=== PATIENT | male | born 1975 | race Hispanic/Latino ===

== ENCOUNTER 2017-01-29 20:55 | Emergency (ER) | payer SELFPAY ==
[2017-01-29 20:58] VITALS: BP 118/80; PULSE 88; RESP 16; TEMP 99.6; O2SAT 98
[2017-01-29 22:24] LABS: BASO # 0.1 K/uL (0.0-0.2); BASO % 0.7 % (0.0-2.0); EOS # 0.1 K/uL (0.0-0.7); EOS % 0.6 % (0.0-4.0); HEMATOCRIT 44.6 % (35.0-51.0); LYMPH # 2.3 K/uL (1.0-4.3); LYMPH % 21.2 % (20.0-40.0); MEAN CELL VOLUME 88.8 fl (80.0-94.0); MEAN CORPUSCULAR HEMOGLOBIN 29.6 pg (27.0-31.0); MEAN CORPUSCULAR HGB CONC 33.3 g/dL (33.0-37.0); MEAN PLATELET VOLUME 8.9 fl (7.2-11.7); MONO # 1.4 K/uL (0.0-0.8); MONO % 12.9 % (0.0-10.0); NEUT # 6.9 K/uL (1.8-7.0); NEUT % 64.6 % (50.0-75.0); NRBC % 0.1 % (0.0-0.0); RED CELL DISTRIBUTION WIDTH 15.4 % (11.5-14.5); WHITE BLOOD COUNT 10.7 K/uL (4.8-10.8)
[2017-01-29 22:35] LABS: ALB/GLOB RATIO 1.3 (1.0-2.1); ALCOHOL SERUM < 10 mg/dl (0-10); ALKALINE PHOSPHATASE 79 U/L (38-126); ALT/SGPT 23 U/L (21-72); AST/SGOT 23 U/L (17-59); BILIRUBIN,TOTAL 0.7 mg/dl (0.2-1.3); BLOOD UREA NITROGEN 14 mg/dl (9-20); CALCIUM 9.7 mg/dL (8.4-10.2); CARBON DIOXIDE 23 mmol/L (22-30); CHLORIDE 106 mmol/L (98-107); GFR AFRICAN-AMERICAN > 60; GLUCOSE,RANDOM 93 mg/dL (75-110); POTASSIUM 4.3 MMOL/L (3.6-5.0); SODIUM 139 mmol/l (132-148); TOTAL PROTEIN 9.1 G/DL (6.3-8.2)
--- NOTE | 2017-01-29 22:50 | ED PDOC ---
HPI: General Adult Time Seen by Provider: 01/29/17 21:00 Chief Complaint (Nursing): Upper Extremity Problem/Injury Chief Complaint (Provider): Shoulder and arm pain History Per: Patient History/Exam Limitations: no limitations Onset/Duration Of Symptoms: Hrs (6x hours prior to arrival) Current Symptoms Are (Timing): Still Present Severity: Moderate Additional Complaint(s): 41 year old male with no pertinent medical history presents to the ED with complaints head pressure that radiates to his left shoulder that started 6x hours prior to arrival while he was at work. He reports having chest tightness when taking deep breaths. He denies having any falls, injuries or trauma to his left shoulder. . He denies having a history of migraines or headaches. PMD: patient does not have a PMD. Past Medical History Reviewed: Historical Data, Nursing Documentation, Vital Signs Vital Signs: Last Vital Signs Temp 99.6 F 01/29/17 20:56 Pulse 88 01/29/17 20:56 Resp 16 01/29/17 20:56 BP 118/80 01/29/17 20:56 Pulse Ox 98 01/29/17 23:20 - Medical History PMH: Atrial Fibrillation, Kidney Stones Other PMH: Zen Parkinson White Syndrome - Surgical History Surgical History: Appendectomy Other surgeries: 2 bowel resections. knee surgery. spleenectomy. kidney stone removal surgery - Family History Family History: States: Unknown Family Hx - Social History Current smoker - smoking cessation education provided: No Alcohol: Social Drugs: Denies - Allergies Allergies/Adverse Reactions: Allergies Allergy/AdvReac Type Severity Reaction Status Date / Time No Known Allergies Allergy Verified 01/29/17 20:56 Review of Systems ROS Statement: Except As Marked, All Systems Reviewed And Found Negative Constitutional: Negative for: Fever, Chills Cardiovascular: Positive for: Other (chest tightness with deep breathing) Musculoskeletal: Positive for: Neck Pain, Shoulder Pain (left shoulder) Neurological: Positive for: Other (head pressure radiates to neck and shoulder) Physical Exam - Reviewed Nursing Documentation Reviewed: Yes Vital Signs Reviewed: Yes - Physical Exam Appears: Positive for: Non-toxic, In Acute Distress (however pt exhibited drug seeking behavior. competely comfortable until provider walks into the room. pt also cant provide any identification or verification of personal information) Head Exam: Positive for: ATRAUMATIC, NORMOCEPHALIC Skin: Positive for: Normal Color, Warm, Dry Cardiovascular/Chest: Positive for: Regular Rate, Rhythm Respiratory: Positive for: Normal Breath Sounds. Negative for: Respiratory Distress Gastrointestinal/Abdominal: Positive for: Normal Exam Extremity: Positive for: Other (patient has mild tenderness when moving his left side) Neurologic/Psych: Positive for: Alert, Oriented (3x) - Laboratory Results Result Diagrams: 01/29/17 22:22 01/29/17 22:22 - ECG ECG: Positive for: Interpreted By Me, Viewed By Me ECG Rhythm: Positive for: Sinus Rhythm (normal sinus rhythm at 90 beats per minute.), Premature Ventricular Contraction (1 PVC noted) O2 Sat by Pulse Oximetry: 98 (RA) Pulse Ox Interpretation: Normal Medical Decision Making Medical Decision Makin:03 Initial impression: 41 year old male with left sided neck and left shoulder pain. Initial plan: * CT head w/o contrast * alcohol serum * CMP * CBC * reglan 10mg IVP * XRay shoulder left * reevaluation 2300: Patient eloped from the ED at this time. He was told no narcotics would be given and he walked out once he knew that. Scribe Attestation: Documented by Julia Argueta, acting as a scribe for Deejay Evans MD. Provider Scribe Attestation: All medical record entries made by the Scribe were at my direction and personally dictated by me. I have reviewed the chart and agree that the record accurately reflects my personal performance of the history, physical exam, medical decision making, and the department course for this patient. I have also personally directed, reviewed, and agree with the discharge instructions and disposition. Disposition - Clinical Impression Clinical Impression: Headache - Patient ED Disposition Is Patient to be Admitted: No Counseled Patient/Family Regarding: Studies Performed, Diagnosis, Need For Followup - Disposition Disposition: Eloped Disposition Time: 23:00 Condition: FAIR
== END 2017-01-30 06:25 | disposition left against medical advice (07) ==
LOC: H.ER 20:55
DX: R51 Headache (principal); Z87.442 Personal history of urinary calculi; I45.6 Pre-excitation syndrome
CPT/HCPCS: 80053; 85025; 96374; 99282; G0480; J2765

== ENCOUNTER 2017-05-07 17:55 | Emergency (ER) | payer SELFPAY ==
[2017-05-07 18:11] VITALS: BP 131/85; PULSE 89; RESP 16; TEMP 97.7; O2SAT 100
--- NOTE | 2017-05-07 18:19 | ED PDOC ---
HPI: CCC, URI, Sore Throat Time Seen by Provider: 05/07/17 17:56 Chief Complaint (Nursing): ENT Problem Chief Complaint (Provider): Sore throat since last night History Per: Patient History/Exam Limitations: no limitations Have you had recent travel within the past 21 days to any of the following countries: [place], [place], [place] or [place]?: No Onset/Duration Of Symptoms: Days (2) Current Symptoms Are (Timing): Still Present Location Of Pain: Throat, Sinus/es, Diffuse Myalgias Sick Contacts (Context): Friend(s) (Significant other ) Associated Symptoms: Fever, Chills, Sore Throat, Myalgias. denies: Cough Ear Symptoms: Bilateral: None Severity: Moderate Additional Complaint(s): Pt states his girlfriend was strep (+) at hospital last night. Past Medical History Reviewed: Historical Data, Nursing Documentation, Vital Signs Vital Signs: Last Vital Signs Temp 97.7 F 05/07/17 18:09 Pulse 89 05/07/17 18:09 Resp 16 05/07/17 18:09 BP 131/85 05/07/17 18:09 Pulse Ox 100 05/07/17 18:09 - Medical History PMH: Atrial Fibrillation, Kidney Stones - Surgical History Surgical History: Appendectomy - Family History Family History: States: Unknown Family Hx - Living Arrangements Living Arrangements: With Family - Social History Current smoker - smoking cessation education provided: No - Home Medications Home Medications: Ambulatory Orders Medication Instructions Recorded Amoxicillin 875 mg PO BID #20 tab 05/07/17 - Allergies Allergies/Adverse Reactions: Allergies Allergy/AdvReac Type Severity Reaction Status Date / Time No Known Allergies Allergy Verified 01/29/17 20:56 Review of Systems ROS Statement: Except As Marked, All Systems Reviewed And Found Negative Constitutional: Positive for: Fever, Chills ENT: Positive for: Throat Pain Respiratory: Negative for: Cough Physical Exam - Reviewed Nursing Documentation Reviewed: Yes Vital Signs Reviewed: Yes - Physical Exam Appears: Positive for: Well, Non-toxic, No Acute Distress Head Exam: Positive for: ATRAUMATIC, NORMAL INSPECTION, NORMOCEPHALIC Skin: Positive for: Normal Color, Warm, DRY Eye Exam: Positive for: Normal appearance ENT: Positive for: Pharynx Is. Negative for: Normal ENT Inspection Neck: Positive for: Normal, Painless ROM Cardiovascular/Chest: Positive for: Regular Rate, Rhythm Respiratory: Positive for: Normal Breath Sounds. Negative for: Accessory Muscle Use, Respiratory Distress Back: Positive for: Normal Inspection Extremity: Positive for: Normal ROM Neurologic/Psych: Positive for: Alert, Oriented - ECG O2 Sat by Pulse Oximetry: 100 Disposition - Clinical Impression Clinical Impression: Strep pharyngitis - Disposition Disposition: Routine/Home Disposition Time: 18:19 Condition: STABLE Prescriptions: Amoxicillin 875 mg PO BID #20 tab Instructions: Strep Throat (ED) Forms: [employer] [facility] (Gabonese)
--- NOTE | 2017-05-07 18:19 | ED PDOC ---
HPI: CCC, URI, Sore Throat Time Seen by Provider: 05/07/17 17:56 Chief Complaint (Nursing): ENT Problem Chief Complaint (Provider): ENT Problem History Per: Patient History/Exam Limitations: no limitations Onset/Duration Of Symptoms: Days (x1) Current Symptoms Are (Timing): Still Present Additional Complaint(s): Donny Deng is a 41 year old male that presents to the ED with a chief complaint of dizziness, sweats, and throat pain that he began to experienced this morning. Patient states that he spent the weekend with his "lady friend," who he states came out of the hospital yesterday with a diagnosis of strep throat. Past Medical History Reviewed: Historical Data, Nursing Documentation, Vital Signs Vital Signs: Last Vital Signs Temp 97.7 F 05/07/17 18:09 Pulse 89 05/07/17 18:09 Resp 16 05/07/17 18:09 BP 131/85 05/07/17 18:09 Pulse Ox 100 05/07/17 18:09 - Medical History PMH: Atrial Fibrillation, Kidney Stones - Surgical History Surgical History: Appendectomy - Family History Family History: States: Unknown Family Hx - Allergies Allergies/Adverse Reactions: Allergies Allergy/AdvReac Type Severity Reaction Status Date / Time No Known Allergies Allergy Verified 01/29/17 20:56 Review of Systems Constitutional: Positive for: Sweats ENT: Positive for: Throat Pain Neurological: Positive for: Dizziness - ECG O2 Sat by Pulse Oximetry: 100 Disposition - Disposition
== END 2017-05-07 18:29 | disposition home or self-care (01) ==
LOC: H.ER 17:55
DX: J02.0 Streptococcal pharyngitis (principal); I48.91 Unspecified atrial fibrillation